=== PATIENT | female | born 1995 | race Caucasian/White ===

== ENCOUNTER 2017-06-16 19:22 | Emergency (ER) | payer MEDICAID, OTHER ==
[~2017-06-16] VITALS: Ht 170.2 cm; Wt 50.0 kg
[2017-06-16 19:34] VITALS: BP 118/64
== END 2017-06-16 21:10 | disposition left against medical advice (07) ==
LOC: ER 19:22
DX: M25.512 Pain in left shoulder (principal); Z53.21 Procedure and treatment not carried out due to patient leaving prior to being seen by health care provider
CPT/HCPCS: A4315

== ENCOUNTER 2017-06-21 12:17 | Emergency (ER) | payer MEDICAID, OTHER ==
[~2017-06-21] VITALS: Ht 170.2 cm; Wt 50.0 kg
[2017-06-21 12:28] VITALS: BP 151/75
== END 2017-06-21 18:30 | disposition left against medical advice (07) ==
LOC: ER 14:33
DX: R10.9 Unspecified abdominal pain (principal); R10.2 Pelvic and perineal pain; Z53.21 Procedure and treatment not carried out due to patient leaving prior to being seen by health care provider